=== PATIENT | female | born 1960 | race Caucasian/White ===

== ENCOUNTER 2021-04-17 11:09 | Emergency (ER) | payer BC ==
--- NOTE | 2021-04-17 13:46 | EDM.PDOC ---
ED HPI GENERAL MEDICAL PROBLEM - General Chief Complaint: Skin Complaint Stated Complaint: FOOT PAIN Time Seen by Provider: 04/17/21 13:30 Source of Information: Reports: Patient. 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 These cracks are painful. No fever. Onset: Gradual Duration: Chronic, Getting Worse Location: Reports: Upper Extremity, Left, Upper Extremity, Right, Lower Extremity, Left, Lower Extremity, Right Quality: Reports: Sharp (with walking) Severity: Moderate Improves with: Reports: Rest Worsens with: Reports: Movement (weight bearing) Context: Reports: Other (See HPI) Associated Symptoms: Reports: No Other Symptoms. 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 No: Normal Inspection, Non-Tender, Robert's Sign, Increased Warmth Neurological: Alert, Oriented, CN II-XII Intact, Normal Cognition, No Motor/Sensory Deficits Psychiatric: Normal Affect, Normal Mood Skin: Warm, Dry, Intact, Erythema (both feet). No: Increased Warmth Location, Skin: Lower Extremity, Right, Lower Extremity, Left Characteristics: Erythematous, Other (skin lichenified on palms and soles bilat.) Associated features: Tenderness (due to the cracking). No: Warmth Course - Vital Signs Last Recorded V/S: Last Vital Signs Temp 36.2 C 04/17/21 13:27 Pulse 83 04/17/21 13:27 Resp 15 04/17/21 13:27 BP 134/80 04/17/21 13:27 Pulse Ox 99 04/17/21 13:27 Departure - Departure Time of Disposition: 13:50 Disposition: Home, Self-Care 01 Condition: Fair Clinical Impression: Dermatitis, Secondary infection - Discharge Information *PRESCRIPTION DRUG MONITORING PROGRAM REVIEWED*: Not Applicable *COPY OF PRESCRIPTION DRUG MONITORING REPORT IN PATIENT DALY: Not Applicable Referrals: PCP,None [Primary Care Provider] - Additional Instructions: Take the cephalexin and Bactrim as directed for your potential infection. Soak feet and hands in very warm water to soften the skin. Immediately after drying apply a thick layer of a good moisturizer and then cotton gloves and heavenly socks. Repeat this process at least twice a day. Recheck in the clinic in 2 days to make sure your redness is not worsening. Sepsis Event Note (ED) - Focused Exam Vital Signs: Vital Signs Temp Pulse Resp BP Pulse Ox 04/17/21 13:27 36.2 C 83 15 134/80 99
== END 2021-04-17 14:26 | disposition home or self-care (01) ==
LOC: JP.ED 11:09
DX: L30.3 Infective dermatitis (principal)
CPT/HCPCS: 99283